=== PATIENT | female | born 1980 | race Two or more races ===

== ENCOUNTER → 2019-02-23 | Day surgery (SDC) | payer OTHER ==
[~2019-02-23] MED LIST: LABETALOL HCL100 MG PO
== END | disposition home or self-care (01) ==
LOC: ADM 02-15 10:00 → CIR.AMB 05:45
DX: D17.21 Benign lipomatous neoplasm of skin and subcutaneous tissue of right arm (principal)

== ENCOUNTER 2020-09-11 06:55 | Outpatient (CLI) | payer OTHER | END 2020-09-11 15:00 | disposition home or self-care (01) | LOC: LAB 06:55 | PROVIDERS: ATTEND Internal Medicine Hematology & Oncology | DX: D50.8 Other iron deficiency anemias (principal); D63.8 Anemia in other chronic diseases classified elsewhere; D55.0 Anemia due to glucose-6-phosphate dehydrogenase [G6PD] deficiency; D51.1 Vitamin B12 deficiency anemia due to selective vitamin B12 malabsorption with proteinuria; D51.0 Vitamin B12 deficiency anemia due to intrinsic factor deficiency; E06.3 Autoimmune thyroiditis; E55.9 Vitamin D deficiency, unspecified; I10 Essential (primary) hypertension ==

== ENCOUNTER 2021-03-04 07:27 | Outpatient (CLI) | payer OTHER | END 2021-03-04 07:29 | disposition home or self-care (01) | LOC: LAB 07:27 | PROVIDERS: ATTEND Internal Medicine Hematology & Oncology | DX: D50.8 Other iron deficiency anemias (principal); R79.89 Other specified abnormal findings of blood chemistry; I10 Essential (primary) hypertension; R74.02 Elevation of levels of lactic acid dehydrogenase [LDH]; K76.89 Other specified diseases of liver; D51.8 Other vitamin B12 deficiency anemias; E03.8 Other specified hypothyroidism; D55.0 Anemia due to glucose-6-phosphate dehydrogenase [G6PD] deficiency; D51.3 Other dietary vitamin B12 deficiency anemia; E06.3 Autoimmune thyroiditis ==

== ENCOUNTER 2021-08-27 07:19 | Outpatient (CLI) | payer OTHER | END 2021-08-27 07:41 | disposition home or self-care (01) | LOC: LAB 07:19 | PROVIDERS: ATTEND Internal Medicine Hematology & Oncology | DX: D55.0 Anemia due to glucose-6-phosphate dehydrogenase [G6PD] deficiency (principal); D51.3 Other dietary vitamin B12 deficiency anemia; E06.3 Autoimmune thyroiditis; I10 Essential (primary) hypertension; J45.20 Mild intermittent asthma, uncomplicated ==